=== PATIENT | female | born 1930 | race Caucasian/White ===

== ENCOUNTER → 2016-12-26 | Outpatient (CLI) | payer OTHER, BC ==
[~2016-12-26] MED LIST: ACID CONTROL PO; ADULT LOW DOSE81 MG PO; ALEVE220 MG PO; AVELOX400 MG PO; CALCIUM; CENTRUM SILVER1 EAC1 PO; COZAAR 25 MG TA25 MG PO; LOVASTATIN; PEPCID40 MG PO; PHENERGAN-CODE120 ML PO; VITAMIN D1000 UNI1 PO; ZOCOR 10 MG TAB10 MG PO; ZOCOR PO
== END ==
LOC: MRI 10:41
DX: M51.36 Other intervertebral disc degeneration, lumbar region (principal); M48.06 Spinal stenosis, lumbar region; M25.552 Pain in left hip